=== PATIENT | female | born 1995 ===

== ENCOUNTER 2022-11-29 09:45 | Inpatient (IN) | payer SELFPAY ==
[2022-11-29] MEDS ORDERED: Lactated Ringers 1,000 ML IV SCH (11:30)
[2022-11-29] MEDS ORDERED: Ondansetron 4 MG/2 ML SDV IVPUSH PRN (12:53)
[2022-11-29] MEDS ORDERED: Water For Irrigation,Sterile 1,000 ML Container IRR PRN (12:53)
[2022-11-29] MEDS ORDERED: Carboprost Tromethamine 250 MCG/1 ML Amp IM PRN (12:53)
[2022-11-29] MEDS ORDERED: Sodium Chloride 0.9% 20 ML SDV IV PRN (12:53)
[2022-11-29] MEDS ORDERED: Methylergonovine 0.2 MG/1 ML Amp IM PRN (12:53)
[2022-11-29] MEDS ORDERED: Butorphanol 1 MG/ML SDV IVPUSH PRN (12:53)
[2022-11-29] MEDS ORDERED: Lidocaine 1% 50 ML MDV INJECT PRN (12:53)
[2022-11-29] MEDS ORDERED: Sodium Chloride 0.9% 10 ML Syringe FLUSH PRN (12:53)
[2022-11-29] MEDS ORDERED: Misoprostol 200 MCG Tab PO PRN (12:53)
[2022-11-29] MEDS ORDERED: Sodium Chloride 0.9% 2.5 ML Syringe FLUSH PRN (12:53)
[2022-11-29] MEDS ORDERED: Tranexamic Acid 1,000 MG in Sodium Chloride 0.9% 100 ML IV PRN (12:53)
[2022-11-29] MEDS ORDERED: Oxytocin/0.9 % Sodium Chloride 30 UNIT/500 ML BAG IV SCH ×2 (13:00→17:15)
[2022-11-29] MEDS ORDERED: Betamethasone Acetate/Betamethasone Sod Phosphate 6 MG/1 ML MDV IM ONE (13:57)
[2022-11-29] MEDS ORDERED: Bupivacaine 0.5% 10 ML SDV ONE (13:57)
[2022-11-29] MEDS ORDERED: Ropivacaine/PF 400 MG/200 ML PCA ONE (13:57)
[2022-11-29] MEDS: Lactated Ringers 1,000 ML IV SCH ×2 (14:23→17:17)
[2022-11-29] MEDS ORDERED: Phenylephrine HCl In 0.9% NaCl 1 MG/10 ML Vial IVPUSH PRN (14:26)
[2022-11-29] MEDS ORDERED: ePHEDrine 50 MG/ML SDV IVPUSH PRN ×2 (14:26)
[2022-11-29] MEDS ORDERED: Ropivacaine HCl/PF 400 MG in Premix Bag 1 BAG EPIDUR SCH (14:30)
[2022-11-29] MEDS ORDERED: Acetaminophen 500 MG Tab PO ONE (15:35)
[2022-11-29] MEDS ORDERED: Benzocaine/Menthol 20%-0.5% Spray 78 GM Cannister TOP PRN (17:52)
[2022-11-29] MEDS ORDERED: Lanolin 100% Cream 7 GM Tube TOP PRN (17:52)
[2022-11-29] MEDS ORDERED: Bisacodyl 10 MG Supp RECTAL PRN (17:52)
[2022-11-29] MEDS ORDERED: Ibuprofen 400 MG Tab PO PRN (17:52)
[2022-11-29] MEDS ORDERED: Acetaminophen 500 MG Tab PO PRN ×2 (17:52)
[2022-11-29] MEDS ORDERED: Docusate Sodium 100 MG Cap PO PRN (17:52)
[2022-11-29] MEDS ORDERED: Witch Hazel Medicated Pads 40/Jar TOP PRN (17:52)
[2022-11-29] MEDS: Phenylephrine HCl In 0.9% NaCl 1 MG/10 ML Vial IVPUSH SCH (20:31)
[2022-11-29] MEDS: Ibuprofen 800 MG Tab PO PRN (20:36)
[2022-11-30 03:18] LABS: C. TRACHOMATIS BY PCR NOT DETECTED; N. GONORRHOEAE BY PCR NOT DETECTED
[2022-11-30] MEDS: Ibuprofen 800 MG Tab PO PRN ×2 (05:28→11:43)
== END 2022-11-30 11:55 | disposition home or self-care (01) | DRG 805 ==
LOC: MW.OBCHECK 09:45 → MW.OB 09:47 → MW.OBCHECK 12:52 → MW.OB 12:53 → OBSVTOIN 17:28 → MW.OB 23:02
PROVIDERS: ADMIT Obstetrics & Gynecology Obstetrics; ATTEND Obstetrics & Gynecology Obstetrics
PROC: 10E0XZZ Delivery of Products of Conception, External Approach (ICD-10-PCS; principal; 2022-11-29)
PROC: 3E0R3BZ Introduction of Anesthetic Agent into Spinal Canal, Percutaneous Approach (ICD-10-PCS; 2022-11-29)
PROC: 00HU33Z Insertion of Infusion Device into Spinal Canal, Percutaneous Approach (ICD-10-PCS; 2022-11-29)
DX: O60.14X0 Preterm labor third trimester with preterm delivery third trimester, not applicable or unspecified (principal); O41.1230 Chorioamnionitis, third trimester, not applicable or unspecified; Z37.0 Single live birth; O99.824 Streptococcus B carrier state complicating childbirth; O77.0 Labor and delivery complicated by meconium in amniotic fluid; Z3A.35 35 weeks gestation of pregnancy
CPT/HCPCS: 36415; 51702; 59025; 59409; 80305-QW; 81003; 84112; 85014; 85018; 85027; 86592; 86762; 86803; 86850; 86900; 86901; 87340; 87389; 87480; 87491; 87510; 87591; 87653; 87660; A9270-GY; J0702; J2590; J2795; J3490; J7120; U0002